=== PATIENT | female | born 1960 | race African-American/Black ===

== ENCOUNTER 2016-08-05 12:07 | Emergency (ER) | payer OTHER ==
[~2016-08-05] VITALS: Ht 167.6 cm; Wt 99.8 kg
[~2016-08-05 12:07] MED LIST: ALLEGRA ALLERGY60 MG PO; ATENOLOL 25 MG25 M1 PO; AUGMENTIN 875875 MG PO; CARAFATE 11 GM/10 M1 PO; FLONASE 0.05%50 MCG NASAL; GLUCOPHAGE XR500 MG PO; HYDROCHLOROTHIA25 M2 PO; HYDROXYZINE HCL25 M2 PO; IBUPROFEN 600600 M1 PO; ONDANSETRON HCL4 M2 PO; PATADAY2.5 ML OP; PEPCID20 MG PO; PREDNISONE 20 M20 MG PO; PRINIVIL20 MG PO; PROTONIX 20 MG20 M1 PO; SIMVASTATIN40 MG PO; SINUS RELIEF14.7 M1 NS; TRAMADOL 50 MG50 MG PO; ZANTAC 150MG T150 MG PO
[2016-08-05 12:29] LABS: ABSOLUTE NEUTROPHILS 6.2 thou/uL (1.4-8.2); BASOPHILS 0.4 % (0.0-2.0); EOSINOPHILS 1.3 % (0.0-3.0); HEMATOCRIT 40.1 % (37.0-47.0); HEMOGLOBIN 13.4 gm/dL (12.0-15.0); LYMPHOCYTES 15.7 % (24.0-44.0); MCH 28.6 pg (26.0-34.0); MCHC 33.4 % (28.0-37.0); MCV 85.8 fL (80.0-100.0); MONOCYTES 5.7 % (1.0-8.0); PLATELET COUNT 355 thou/uL (150-400); POLYS 76.9 % (36.0-66.0); RBC 4.67 mil/uL (4.20-5.00); RDW 13.8 % (10.5-14.5); WBC 8.1 thou/uL (4.0-11.0)
[2016-08-05 12:31] LABS: MANUAL DIFF NO
[2016-08-05 12:44] LABS: CALCIUM 8.7 mg/dL (8.5-10.1); CREATININE 0.8 mg/dL (0.6-1.3); POTASSIUM 3.2 mmol/L (3.5-5.1)
[2016-08-05 12:48] LABS: ALBUMIN 3.8 g/dL (3.4-5.0); DIRECT BILIRUBIN 0.2 mg/dL (<0.1-0.3); TOTAL BILIRUBIN 0.4 mg/dL (<0.1-1.0); TOTAL PROTEIN 7.8 g/dL (6.4-8.2)
[2016-08-05 14:04] LABS: URINE BILIRUBIN NEGATIVE (Negative); URINE BLOOD NEGATIVE (Negative); URINE COLOR YELLOW; URINE GLUCOSE-RANDOM* NEGATIVE (Negative); URINE KETONES 1+ (Negative); URINE NITRITE NEGATIVE (Negative); URINE PROTEIN (DIPSTICK) NEGATIVE (Negative); URINE SPECIFIC GRAVITY <= 1.005 (1.003-1.035); URINE UROBILINOGEN 0.2 E.U./dl (0.2-1.0)
[2016-08-05] MEDS ORDERED: ONDANSETRON HCL4 M2 PO (14:48)
[2016-08-05 15:10] VITALS: BP 128/88
[2016-09-07] MEDS ORDERED: CETIRIZINE HCL10 MG PO (08:40)
[2016-09-07] MEDS ORDERED: FLONASE 0.05%50 MCG NASAL (08:41)
== END 2016-08-05 15:10 | disposition home or self-care (01) ==
LOC: ER 12:07
PROVIDERS: Nurse Practitioner
DX: J06.9 Acute upper respiratory infection, unspecified (principal); R10.13 Epigastric pain; I10 Essential (primary) hypertension; G56.03 Carpal tunnel syndrome, bilateral upper limbs; Z88.8 Allergy status to other drugs, medicaments and biological substances

== ENCOUNTER 2016-08-21 18:16 | Emergency (ER) | payer OTHER ==
[~2016-08-21] VITALS: Ht 167.6 cm; Wt 94.3 kg
[2016-08-21 18:20] VITALS: BP 158/98
[2016-08-21] MEDS ORDERED: PREDNISONE 20 M20 MG PO (18:52)
[2016-08-21] MEDS ORDERED: AFRIN15 ML NS (18:52)
[2016-09-07] MEDS ORDERED: CETIRIZINE HCL10 MG PO (08:40)
[2016-09-07] MEDS ORDERED: FLONASE 0.05%50 MCG NASAL (08:41)
== END 2016-08-21 19:24 | disposition home or self-care (01) ==
LOC: ER 18:16
DX: H10.10 Acute atopic conjunctivitis, unspecified eye (principal); I10 Essential (primary) hypertension; G56.03 Carpal tunnel syndrome, bilateral upper limbs; Z88.6 Allergy status to analgesic agent

== ENCOUNTER 2017-02-19 21:08 | Emergency (ER) | payer OTHER ==
[~2017-02-19] VITALS: Ht 167.6 cm; Wt 91.2 kg
[~2017-02-19 21:08] MED LIST changes: +AFRIN15 ML NS; +CETIRIZINE HCL10 MG PO
[2017-02-19] MEDS ORDERED: PREDNISONE 20 M20 MG PO (21:27)
[2017-02-19 21:40] VITALS: BP 150/94
== END 2017-02-19 21:41 | disposition home or self-care (01) ==
LOC: ER 21:08
DX: H10.13 Acute atopic conjunctivitis, bilateral (principal); I10 Essential (primary) hypertension; Z88.4 Allergy status to anesthetic agent

== ENCOUNTER 2017-02-23 22:24 | Emergency (ER) | payer OTHER ==
[~2017-02-23] VITALS: Ht 167.6 cm; Wt 91.6 kg
--- NOTE | ~2017-02-23 | EKG ---
[address] [address] ELECTROCARDIOGRAM REPORT Name: YAMILLUCYJAMSHID Room #: DEP [facility]#: [id number] Admission: 02/23/17 Attend Phys: Discharge: 02/24/17 Date of : 64 Report #: [id number] THIS REPORT FOR: //name// [facility] ED Test Date: 2017-02-23 Test Time: 22:28:10 Pat Name: JAMSHID TOWNSEND Department: Room: Gender: F Heel Former: judi : 1960 Requested By: Myrna Martin Order Number: [id number] MD: Morgan Yeager Measurements Intervals [place] Rate: 75 P: 62 NC: 164 QRS: 31 QRSD: 89 T: 9 QT: 417 QTc: 466 Interpretive Statements Sinus rhythm No significant abnormality Compared to ECG 01/30/2016 18:33:10 No significant changes Electronically Signed On 02-26-2017 8:34:00 CDT by Morgan Yeager [email or web address] <ELECTRONICALLY SIGNED> By: Morgan Yeager MD, [facility] 02/26/17 0834 2228 2228 Morgan Yeager MD, FACC /EPI
[2017-02-23 22:58] LABS: ABSOLUTE NEUTROPHILS 5.2 thou/uL (1.4-8.2); BASOPHILS 0.8 % (0.0-2.0); EOSINOPHILS 2.7 % (0.0-3.0); HEMATOCRIT 37.7 % (37.0-47.0); HEMOGLOBIN 12.4 gm/dL (12.0-15.0); LYMPHOCYTES 37.5 % (24.0-44.0); MCH 28.2 pg (26.0-34.0); MCHC 32.9 g/dL (28.0-37.0); MCV 85.9 fL (80.0-100.0); MONOCYTES 5.1 % (1.0-8.0); PLATELET COUNT 342 thou/uL (150-400); POLYS 53.9 % (36.0-66.0); RBC 4.39 mil/uL (4.20-5.00); RDW 14.1 % (10.5-14.5); WBC 9.7 thou/uL (4.0-11.0)
[2017-02-23 22:59] LABS: MANUAL DIFF NO
[2017-02-23 23:23] LABS: ANION GAP 9 mmol/L (7-16); BUN 15 mg/dL (7-18); CHLORIDE 101 mmol/L (98-107); CO2 30 mmol/L (21-32); CREATININE 0.9 mg/dL (0.6-1.0); GLUCOSE 127 mg/dL (74-106); SODIUM 140 mmol/L (136-145); TROPONIN-I < 0.04 ng/mL (<0.04-0.07)
[2017-02-23 23:24] LABS: POTASSIUM 2.9 mmol/L (3.5-5.1)
[2017-02-24] MEDS ORDERED: PRILOSEC 20 MG20 MG PO (02:01)
[2017-02-24 02:20] VITALS: BP 134/78
== END 2017-02-24 02:22 | disposition home or self-care (01) ==
LOC: ER 22:24
PROVIDERS: Emergency Medicine
DX: E87.6 Hypokalemia (principal); R07.89 Other chest pain; I10 Essential (primary) hypertension; Z88.4 Allergy status to anesthetic agent

== ENCOUNTER 2017-03-18 08:18 | Emergency (ER) | payer OTHER ==
[~2017-03-18] VITALS: Ht 167.6 cm; Wt 90.3 kg
[~2017-03-18 08:18] MED LIST changes: +PRILOSEC 20 MG20 MG PO
[2017-03-18 08:20] VITALS: BP 151/105
[2017-03-18] MEDS ORDERED: AUGMENTIN 875-1 EACH PO (08:36)
[2017-03-18] MEDS ORDERED: PREDNISONE 20 M20 MG PO (08:36)
== END 2017-03-18 08:52 | disposition home or self-care (01) ==
LOC: ER 08:18
DX: L03.213 Periorbital cellulitis (principal); S00.262A Insect bite (nonvenomous) of left eyelid and periocular area, initial encounter; W57.XXXA Bitten or stung by nonvenomous insect and other nonvenomous arthropods, initial encounter; Y93.89 Activity, other specified; Y92.89 Other specified places as the place of occurrence of the external cause; Y99.8 Other external cause status

== ENCOUNTER 2017-07-29 16:26 | Emergency (ER) | payer OTHER ==
[~2017-07-29] VITALS: Ht 167.6 cm; Wt 94.3 kg
[~2017-07-29 16:26] MED LIST changes: +AUGMENTIN 875-1 EACH PO; +PHENERGAN 25 MG25 M1 PO
[2017-07-29 16:54] LABS: URINE BILIRUBIN NEGATIVE (Negative); URINE BLOOD NEGATIVE (Negative); URINE CLARITY CLEAR; URINE COLOR YELLOW; URINE GLUCOSE-RANDOM* NEGATIVE (Negative); URINE KETONES NEGATIVE (Negative); URINE LEUKOCYTES-REFLEX NEGATIVE (Negative); URINE NITRITE-REFLEX NEGATIVE (Negative); URINE PROTEIN (DIPSTICK) NEGATIVE (Negative); URINE SPECIFIC GRAVITY >= 1.030 (1.005-1.035); URINE UROBILINOGEN 0.2 E.U./dl (0.2-1.0)
[2017-07-29] MEDS ORDERED: PYRIDIUM200 MG PO (16:57)
[2017-07-29 17:38] VITALS: BP 152/88
[2018-04-24] MEDS ORDERED: PEPCID20 MG PO (05:34)
[2018-04-24] MEDS ORDERED: PREDNISONE 20 M20 MG PO (05:34)
[2018-04-24] MEDS ORDERED: KEFLEX500 M1 PO (05:34)
[2018-04-24] MEDS ORDERED: ZOCOR20 MG PO (21:33)
[2018-04-24] MEDS ORDERED: OMEPRAZOLE 20 M20 M1 PO (21:33)
[2018-04-26] MEDS ORDERED: PREDNISONE 20 M20 MG PO (08:38)
== END 2017-07-29 17:39 | disposition home or self-care (01) ==
LOC: ER 16:26
PROVIDERS: Emergency Medicine
DX: R30.0 Dysuria (principal); I10 Essential (primary) hypertension; Z98.890 Other specified postprocedural states

== ENCOUNTER 2017-08-05 02:22 | Emergency (ER) | payer OTHER ==
[~2017-08-05] VITALS: Ht 167.6 cm; Wt 94.3 kg
[~2017-08-05 02:22] MED LIST changes: +PYRIDIUM200 MG PO
[2017-08-05] MEDS ORDERED: DOXYCYCLINE 10100 MG PO (02:37)
[2017-08-05] MEDS ORDERED: FLAGYL500 MG PO (02:37)
[2017-08-05 03:33] LABS: URINE BILIRUBIN NEGATIVE (Negative); URINE BLOOD NEGATIVE (Negative); URINE CLARITY CLEAR; URINE COLOR YELLOW; URINE GLUCOSE-RANDOM* NEGATIVE (Negative); URINE KETONES TRACE (Negative); URINE LEUKOCYTES-REFLEX NEGATIVE (Negative); URINE PROTEIN (DIPSTICK) NEGATIVE (Negative); URINE SPECIFIC GRAVITY >= 1.030 (1.005-1.035); URINE UROBILINOGEN 0.2 E.U./dl (0.2-1.0)
[2017-08-05 03:37] LABS: URINE NITRITE-REFLEX POSITIVE (Negative)
[2017-08-05 03:42] LABS: BACTERIA-REFLEX 1-9 Few /HPF (None Seen); CASTS None Seen /LPF (None Seen); CRYSTALS None Seen /LPF (None Seen); MUCUS 0-3 Light strn/LPF (None Seen); SQUAMOUS 0-3 Few /LPF (0-3); URINE RBC None Seen /HPF (0-2); URINE WBC-REFLEX None Seen /HPF (0-5)
[2017-08-05] MEDS ORDERED: KEFLEX500 M1 PO (04:08)
[2017-08-05] MEDS ORDERED: PYRIDIUM200 MG PO (04:08)
[2017-08-05 04:44] VITALS: BP 144/95
[2018-04-24] MEDS ORDERED: PREDNISONE 20 M20 MG PO (05:34)
[2018-04-24] MEDS ORDERED: PEPCID20 MG PO (05:34)
[2018-04-24] MEDS ORDERED: KEFLEX500 M1 PO (05:34)
[2018-04-24] MEDS ORDERED: ZOCOR20 MG PO (21:33)
[2018-04-24] MEDS ORDERED: OMEPRAZOLE 20 M20 M1 PO (21:33)
[2018-04-26] MEDS ORDERED: PREDNISONE 20 M20 MG PO (08:38)
== END 2017-08-05 04:46 | disposition home or self-care (01) ==
LOC: ER 02:22
PROVIDERS: Emergency Medicine
DX: N39.0 Urinary tract infection, site not specified (principal); I10 Essential (primary) hypertension; Z98.890 Other specified postprocedural states; Z88.4 Allergy status to anesthetic agent

== ENCOUNTER 2018-01-12 20:39 | Emergency (ER) | payer OTHER ==
[~2018-01-12] VITALS: Ht 167.6 cm; Wt 92.5 kg
--- NOTE | ~2018-01-12 | EKG ---
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 : 1960 Requested By: Myrna Martin Order Number: [id number] MD: Nestor Montenegro Measurements Intervals [place] Rate: 83 P: 64 [place]: 145 QRS: 43 QRSD: 90 T: 24 QT: 407 QTc: 479 Interpretive Statements Sinus rhythm Atrial premature complex Probable left atrial enlargement Compared to ECG 02/23/2017 22:28:10 Atrial premature complex(es) now present Electronically Signed On 01-12-2018 21:39:54 CDT by Nestor Montenegro [email or web address] <ELECTRONICALLY SIGNED> By: Nestor Montenegro MD 01/12/18 2139 41 41 Nestor Montenegro MD /JOHN
[~2018-01-12 20:39] MED LIST changes: +DOXYCYCLINE 10100 MG PO; +FLAGYL500 MG PO; +KEFLEX500 M1 PO
[2018-01-12 20:41] VITALS: BP 133/92
[2018-01-12] MEDS ORDERED: CLARITIN-D 12 H1 TA2 PO (21:09)
[2018-01-12] MEDS ORDERED: FLONASE 0.05%50 MCG NASAL (21:09)
== END 2018-01-12 21:52 | disposition home or self-care (01) ==
LOC: ER 20:39
DX: J02.8 Acute pharyngitis due to other specified organisms (principal); B97.89 Other viral agents as the cause of diseases classified elsewhere; R00.2 Palpitations; I10 Essential (primary) hypertension

== ENCOUNTER 2018-03-04 20:09 | Emergency (ER) | payer OTHER ==
[~2018-03-04] VITALS: Ht 167.6 cm; Wt 91.6 kg
[~2018-03-04 20:09] MED LIST changes: +CLARITIN-D 12 H1 TA2 PO
[2018-03-04] MEDS ORDERED: PREDNISONE 20 M20 M1 PO (20:56)
[2018-03-04] MEDS ORDERED: MOBIC7.5 MG PO (20:56)
[2018-03-04] MEDS ORDERED: ALLEGRA-D 12 H1 EAC1 PO (20:58)
[2018-03-04 21:21] VITALS: BP 136/72
== END 2018-03-04 21:22 | disposition home or self-care (01) ==
LOC: ER 20:09
DX: J02.9 Acute pharyngitis, unspecified (principal); H69.92 Unspecified Eustachian tube disorder, left ear; I10 Essential (primary) hypertension; Z88.8 Allergy status to other drugs, medicaments and biological substances

== ENCOUNTER 2018-04-21 20:55 | Emergency (ER) | payer OTHER ==
[~2018-04-21] VITALS: Ht 167.6 cm; Wt 91.6 kg
[~2018-04-21 20:55] MED LIST changes: +ALLEGRA-D 12 H1 EAC1 PO; +MOBIC7.5 MG PO; +PREDNISONE 20 M20 M1 PO
[2018-04-21] MEDS ORDERED: TRIAMCINOLONE A80 G2 TOP (21:27)
[2018-04-21 21:40] VITALS: BP 130/86
[2018-04-24] MEDS ORDERED: PEPCID20 MG PO (05:34)
[2018-04-24] MEDS ORDERED: KEFLEX500 M1 PO (05:34)
[2018-04-24] MEDS ORDERED: PREDNISONE 20 M20 MG PO (05:34)
[2018-04-24] MEDS ORDERED: OMEPRAZOLE 20 M20 M1 PO (21:33)
[2018-04-24] MEDS ORDERED: ZOCOR20 MG PO (21:33)
[2018-04-26] MEDS ORDERED: PREDNISONE 20 M20 MG PO (08:38)
== END 2018-04-21 21:42 | disposition home or self-care (01) ==
LOC: ER 20:55
DX: L25.9 Unspecified contact dermatitis, unspecified cause (principal); I10 Essential (primary) hypertension; Z88.4 Allergy status to anesthetic agent

== ENCOUNTER 2018-05-19 23:36 | Emergency (ER) | payer OTHER ==
[~2018-05-19] VITALS: Ht 167.6 cm; Wt 90.3 kg
[~2018-05-19 23:36] MED LIST changes: +OMEPRAZOLE 20 M20 M1 PO; +TRIAMCINOLONE A80 G2 TOP; +ZOCOR20 MG PO
[2018-05-19 23:58] LABS: URINE BILIRUBIN NEGATIVE (Negative); URINE BLOOD NEGATIVE (Negative); URINE CLARITY CLEAR; URINE COLOR YELLOW; URINE GLUCOSE-RANDOM* NEGATIVE (Negative); URINE KETONES NEGATIVE (Negative); URINE LEUKOCYTES-REFLEX NEGATIVE (Negative); URINE NITRITE-REFLEX NEGATIVE (Negative); URINE PROTEIN (DIPSTICK) NEGATIVE (Negative); URINE SPECIFIC GRAVITY >= 1.030 (1.005-1.035); URINE UROBILINOGEN 0.2 E.U./dl (0.2-1.0)
[2018-05-20 00:13] LABS: ABSOLUTE NEUTROPHILS 3.9 thou/uL (1.4-8.2); BASOPHILS 0.9 % (0.0-2.0); EOSINOPHILS 4.7 % (0.0-3.0); HEMATOCRIT 36.6 % (37.0-47.0); HEMOGLOBIN 12.4 gm/dL (12.0-15.0); LYMPHOCYTES 38.4 % (24.0-44.0); MCH 28.7 pg (26.0-34.0); MCHC 33.9 g/dL (28.0-37.0); MCV 84.6 fL (80.0-100.0); MONOCYTES 5.5 % (1.0-8.0); PLATELET COUNT 313 thou/uL (150-400); POLYS 50.5 % (36.0-66.0); RBC 4.33 mil/uL (4.20-5.00); RDW 14.4 % (10.5-14.5); WBC 7.7 thou/uL (4.0-11.0)
[2018-05-20 00:21] LABS: CALCIUM 9.1 mg/dL (8.5-10.1); CREATININE 0.8 mg/dL (0.6-1.0); POTASSIUM 3.4 mmol/L (3.5-5.1)
[2018-05-20 00:27] LABS: ALBUMIN 3.3 g/dL (3.4-5.0); TOTAL BILIRUBIN 0.2 mg/dL (<0.1-1.0); TOTAL PROTEIN 7.3 g/dL (6.4-8.2)
[2018-05-20] MEDS ORDERED: MIRALAX17 GM PO (01:21)
[2018-05-20] MEDS ORDERED: BENTYL 10 MG CA10 M1 PO (01:38)
== END 2018-05-20 01:58 | disposition home or self-care (01) ==
LOC: ER 23:36
PROVIDERS: Emergency Medicine
DX: K59.00 Constipation, unspecified (principal); E78.5 Hyperlipidemia, unspecified; G56.03 Carpal tunnel syndrome, bilateral upper limbs; K21.9 Gastro-esophageal reflux disease without esophagitis; Z90.710 Acquired absence of both cervix and uterus; Z87.19 Personal history of other diseases of the digestive system; Z88.8 Allergy status to other drugs, medicaments and biological substances

== ENCOUNTER 2018-11-02 17:02 | Emergency (ER) | payer OTHER ==
[~2018-11-02] VITALS: Ht 167.6 cm; Wt 94.8 kg
[~2018-11-02 17:02] MED LIST changes: +BENTYL 10 MG CA10 M1 PO; +MIRALAX17 GM PO
[2018-11-02] MEDS ORDERED: NORCO 5-325 TA1 EACH PO (18:39)
[2018-11-02 19:15] VITALS: BP 108/67
[2018-11-03] MEDS ORDERED: NORCO 5-325 TA1 EACH PO (17:30)
[2018-11-03] MEDS ORDERED: CLEOCIN HCL150 MG PO (17:30)
== END 2018-11-02 19:15 | disposition home or self-care (01) ==
LOC: ER 17:02
DX: J02.0 Streptococcal pharyngitis (principal); E78.5 Hyperlipidemia, unspecified; K21.9 Gastro-esophageal reflux disease without esophagitis; Z90.710 Acquired absence of both cervix and uterus; Z88.8 Allergy status to other drugs, medicaments and biological substances

== ENCOUNTER 2018-11-03 13:41 | Emergency (ER) | payer OTHER ==
[~2018-11-03] VITALS: Ht 167.6 cm; Wt 94.8 kg
[~2018-11-03 13:41] MED LIST changes: +NORCO 5-325 TA1 EACH PO
[2018-11-03 16:34] LABS: ABSOLUTE NEUTROPHILS 7.9 thou/uL (1.4-8.2); BASOPHILS 0.6 % (0.0-2.0); EOSINOPHILS 0.3 % (0.0-3.0); HEMATOCRIT 35.9 % (37.0-47.0); HEMOGLOBIN 11.8 gm/dL (12.0-15.0); LYMPHOCYTES 22.4 % (24.0-44.0); MCH 27.3 pg (26.0-34.0); MCHC 32.9 g/dL (28.0-37.0); MCV 83.1 fL (80.0-100.0); MONOCYTES 7.8 % (1.0-8.0); PLATELET COUNT 310 thou/uL (150-400); POLYS 68.9 % (36.0-66.0); RBC 4.32 mil/uL (4.20-5.00); RDW 13.8 % (10.5-14.5); WBC 11.4 thou/uL (4.0-11.0)
[2018-11-03 16:39] LABS: CALCIUM 9.4 mg/dL (8.5-10.1); CREATININE 0.9 mg/dL (0.6-1.0); POTASSIUM 3.2 mmol/L (3.5-5.1)
[2018-11-03] MEDS ORDERED: NORCO 5-325 TA1 EACH PO (17:30)
[2018-11-03] MEDS ORDERED: CLEOCIN HCL150 MG PO (17:30)
[2018-11-03 17:49] VITALS: BP 138/78
== END 2018-11-03 17:54 | disposition home or self-care (01) ==
LOC: ER 13:41
PROVIDERS: Nurse Practitioner Family
DX: J02.0 Streptococcal pharyngitis (principal); R59.1 Generalized enlarged lymph nodes; K21.9 Gastro-esophageal reflux disease without esophagitis; Z88.8 Allergy status to other drugs, medicaments and biological substances; Z90.710 Acquired absence of both cervix and uterus

== ENCOUNTER 2018-11-05 03:05 | Emergency (ER) | payer OTHER ==
[~2018-11-05] VITALS: Ht 167.6 cm; Wt 94.8 kg
[~2018-11-05 03:05] MED LIST changes: +CLEOCIN HCL150 MG PO
[2018-11-05 04:11] VITALS: BP 137/94
== END 2018-11-05 04:13 | disposition home or self-care (01) ==
LOC: ER 03:05
DX: J02.9 Acute pharyngitis, unspecified (principal); E78.5 Hyperlipidemia, unspecified; K21.9 Gastro-esophageal reflux disease without esophagitis; Z88.1 Allergy status to other antibiotic agents; Z88.4 Allergy status to anesthetic agent; Z90.710 Acquired absence of both cervix and uterus

== ENCOUNTER 2018-12-16 16:08 | Emergency (ER) | payer OTHER ==
[~2018-12-16] VITALS: Ht 165.1 cm; Wt 94.8 kg
[2018-12-16] MEDS ORDERED: TESSALON PERLE100 MG PO (18:22)
[2018-12-16] MEDS ORDERED: GUAIFEN-CODEINE10 ML PO (18:22)
[2018-12-16 18:44] VITALS: BP 143/74
== END 2018-12-16 18:45 | disposition home or self-care (01) ==
LOC: ER 16:08
DX: J06.9 Acute upper respiratory infection, unspecified (principal); E78.5 Hyperlipidemia, unspecified; K21.9 Gastro-esophageal reflux disease without esophagitis; Z90.710 Acquired absence of both cervix and uterus; Z88.1 Allergy status to other antibiotic agents; Z88.8 Allergy status to other drugs, medicaments and biological substances

== ENCOUNTER 2019-03-26 12:59 | Emergency (ER) | payer OTHER ==
[~2019-03-26] VITALS: Ht 172.7 cm; Wt 77.1 kg
[~2019-03-26 12:59] MED LIST changes: +GUAIFEN-CODEINE10 ML PO; +TESSALON PERLE100 MG PO
[2019-03-26 13:30] LABS: URINE BILIRUBIN NEGATIVE (Negative); URINE BLOOD NEGATIVE (Negative); URINE CLARITY CLEAR; URINE COLOR YELLOW; URINE GLUCOSE-RANDOM* NEGATIVE (Negative); URINE KETONES NEGATIVE (Negative); URINE LEUKOCYTES-REFLEX NEGATIVE (Negative); URINE NITRITE-REFLEX NEGATIVE (Negative); URINE PROTEIN (DIPSTICK) NEGATIVE (Negative); URINE SPECIFIC GRAVITY 1.015 (1.005-1.035); URINE UROBILINOGEN 0.2 E.U./dl (0.2-1.0)
[2019-03-26 13:52] LABS: MCH 28.1 pg (26.0-34.0); MCHC 33.6 g/dL (28.0-37.0)
[2019-03-26 13:58] LABS: ABSOLUTE NEUTROPHILS 3.7 thou/uL (1.4-8.2); CALCIUM 9.7 mg/dL (8.5-10.1); CREATININE 0.9 mg/dL (0.6-1.0); HEMATOCRIT 38.2 % (37.0-47.0); HEMOGLOBIN 12.8 gm/dL (12.0-15.0); LYMPHOCYTES 38.6 % (24.0-44.0); MCV 83.8 fL (80.0-100.0); MONOCYTES 5.8 % (1.0-8.0); PLATELET COUNT 356 thou/uL (150-400); POLYS 52.6 % (36.0-66.0); POTASSIUM 3.6 mmol/L (3.5-5.1); RBC 4.56 mil/uL (4.20-5.00); RDW 13.6 % (10.5-14.5)
[2019-03-26 14:05] LABS: ALBUMIN 3.8 g/dL (3.4-5.0); TOTAL BILIRUBIN 0.4 mg/dL (<0.1-1.0); TOTAL PROTEIN 7.8 g/dL (6.4-8.2)
[2019-03-26 14:21] VITALS: BP 121/85
[2019-03-26] MEDS ORDERED: MOBIC15 MG PO (14:39)
== END 2019-03-26 14:53 | disposition home or self-care (01) ==
LOC: ER 12:59
PROVIDERS: Nurse Practitioner Family
DX: R10.9 Unspecified abdominal pain (principal); E78.5 Hyperlipidemia, unspecified; K21.9 Gastro-esophageal reflux disease without esophagitis; Z88.1 Allergy status to other antibiotic agents; Z88.4 Allergy status to anesthetic agent; Z90.710 Acquired absence of both cervix and uterus

== ENCOUNTER 2019-04-29 10:21 | Emergency (ER) | payer OTHER ==
[~2019-04-29] VITALS: Ht 167.6 cm; Wt 90.7 kg
[~2019-04-29 10:21] MED LIST changes: +MOBIC15 MG PO
[2019-04-29 11:12] LABS: EOSINOPHILS 1.8 % (0.0-3.0); HEMATOCRIT 42.2 % (37.0-47.0); MCH 28.7 pg (26.0-34.0); MCHC 33.3 g/dL (28.0-37.0); MCV 86.1 fL (80.0-100.0); MONOCYTES 4.4 % (1.0-8.0); PLATELET COUNT 410 thou/uL (150-400); POLYS 67.8 % (36.0-66.0); RDW 13.7 % (10.5-14.5); WBC 7.4 thou/uL (4.0-11.0)
[2019-04-29 11:32] LABS: URINE BILIRUBIN NEGATIVE (Negative); URINE BLOOD NEGATIVE (Negative); URINE CLARITY CLEAR; URINE COLOR YELLOW; URINE GLUCOSE-RANDOM* NEGATIVE (Negative); URINE KETONES NEGATIVE (Negative); URINE LEUKOCYTES-REFLEX NEGATIVE (Negative); URINE NITRITE-REFLEX NEGATIVE (Negative); URINE PROTEIN (DIPSTICK) NEGATIVE (Negative); URINE SPECIFIC GRAVITY 1.025 (1.005-1.035); URINE UROBILINOGEN 0.2 E.U./dl (0.2-1.0)
[2019-04-29 11:40] LABS: CALCIUM 9.2 mg/dL (8.5-10.1); CREATININE 0.9 mg/dL (0.6-1.0); POTASSIUM 3.4 mmol/L (3.5-5.1)
[2019-04-29 11:47] LABS: ALBUMIN 3.8 g/dL (3.4-5.0); TOTAL BILIRUBIN 0.3 mg/dL (<0.1-1.0); TOTAL PROTEIN 7.9 g/dL (6.4-8.2)
[2019-04-29 12:50] VITALS: BP 143/84
--- NOTE | 2019-05-01 12:43 | EKG ---
[address] [address] ELECTROCARDIOGRAM REPORT Name: JAMSHID TOWNSEND Room #: DEP [facility]#: [id number] Admission: 04/29/19 Attend Phys: Discharge: 04/29/19 Date of : 64 Report #: [id number] THIS REPORT FOR: //name// [facility] ED Test Date: 2019-04-29 Test Time: 11:13:45 Pat Name: JAMSHID TOWNSEND Department: Room: Gender: F Director Cpg: : 1960 Requested By: Raji Monteiro Order Number: [id number] MD: Nestor Montenegro Measurements Intervals [place] Rate: 75 P: 55 [place]: 161 QRS: 42 QRSD: 105 T: 24 QT: 432 QTc: 483 Interpretive Statements Sinus rhythm Probable left atrial enlargement Borderline prolonged QT interval Compared to ECG 01/12/2018 20:42:04 Atrial premature complex(es) no longer present Electronically Signed On 05-01-2019 12:42:59 CDT by Nestor Montenegro [email or web address] <ELECTRONICALLY SIGNED> By: Nestor Montenegro MD 05/01/19 1242 1113 111 Nestor Montenegro MD /JOHN
== END 2019-04-29 12:50 | disposition home or self-care (01) ==
LOC: ER 10:21
PROVIDERS: Emergency Medicine
DX: R10.13 Epigastric pain (principal); R11.2 Nausea with vomiting, unspecified; E78.5 Hyperlipidemia, unspecified; K21.9 Gastro-esophageal reflux disease without esophagitis; E66.9 Obesity, unspecified; Z68.32 Body mass index [BMI] 32.0-32.9, adult; Z90.711 Acquired absence of uterus with remaining cervical stump; Z88.1 Allergy status to other antibiotic agents; Z91.048 Other nonmedicinal substance allergy status

== ENCOUNTER 2019-05-01 20:19 | Emergency (ER) | payer OTHER ==
[~2019-05-01] VITALS: Ht 167.6 cm; Wt 90.7 kg
[2019-05-01 20:35] LABS: URINE BILIRUBIN NEGATIVE (Negative); URINE BLOOD NEGATIVE (Negative); URINE CLARITY CLEAR; URINE COLOR YELLOW; URINE GLUCOSE-RANDOM* NEGATIVE (Negative); URINE KETONES NEGATIVE (Negative); URINE LEUKOCYTES NEGATIVE (Negative); URINE NITRITE NEGATIVE (Negative); URINE PROTEIN (DIPSTICK) NEGATIVE (Negative)
[2019-05-01 20:54] LABS: ABSOLUTE NEUTROPHILS 4.7 thou/uL (1.4-8.2); BASOPHILS 0.4 % (0.0-2.0); EOSINOPHILS 1.8 % (0.0-3.0); HEMATOCRIT 37.2 % (37.0-47.0); HEMOGLOBIN 12.3 gm/dL (12.0-15.0); LYMPHOCYTES 17.7 % (24.0-44.0); MCV 84.9 fL (80.0-100.0); MONOCYTES 6.6 % (1.0-8.0); POLYS 73.5 % (36.0-66.0); RBC 4.38 mil/uL (4.20-5.00); WBC 6.4 thou/uL (4.0-11.0)
[2019-05-01 20:55] LABS: PLATELET COUNT 334 thou/uL (150-400)
[2019-05-01 21:02] LABS: ANION GAP 11 mmol/L (7-16); BUN 16 mg/dL (7-18); CALCIUM 9.4 mg/dL (8.5-10.1); CHLORIDE 102 mmol/L (98-107); CO2 27 mmol/L (21-32); CREATININE 0.8 mg/dL (0.6-1.0); GLUCOSE 132 mg/dL (74-106); POTASSIUM 3.5 mmol/L (3.5-5.1); SODIUM 140 mmol/L (136-145)
[2019-05-01 21:12] LABS: ALBUMIN 3.5 g/dL (3.4-5.0); LIPASE 104 U/L (73-393); SGOT 20 U/L (15-37); SGPT 23 U/L (30-65); TOTAL BILIRUBIN 0.2 mg/dL (<0.1-1.0); TOTAL PROTEIN 7.1 g/dL (6.4-8.2); TROPONIN-I <0.06 ng/mL (<0.06)
[2019-05-01 21:45] VITALS: BP 126/83
[2019-05-01] MEDS ORDERED: ZOFRAN ODT4 MG PO (21:48)
[2019-05-01] MEDS ORDERED: BENTYL 10 MG CA10 M1 PO (21:48)
[2019-05-01] MEDS ORDERED: BENTYL 20 MG TA20 M1 PO (21:51)
[2019-05-01] MEDS ORDERED: ONDANSETRON HCL4 M2 PO (21:51)
--- NOTE | 2019-05-04 13:14 | EKG ---
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
== END 2019-05-01 22:20 | disposition home or self-care (01) ==
LOC: ER 20:19
PROVIDERS: Physician Assistant
DX: K44.9 Diaphragmatic hernia without obstruction or gangrene (principal); R10.13 Epigastric pain; R11.2 Nausea with vomiting, unspecified; E78.5 Hyperlipidemia, unspecified; K21.9 Gastro-esophageal reflux disease without esophagitis; Z90.711 Acquired absence of uterus with remaining cervical stump; Z88.1 Allergy status to other antibiotic agents; Z88.4 Allergy status to anesthetic agent

== ENCOUNTER 2019-05-19 06:51 | Emergency (ER) | payer OTHER ==
[~2019-05-19] VITALS: Ht 167.6 cm; Wt 90.7 kg
[~2019-05-19 06:51] MED LIST changes: +BENTYL 20 MG TA20 M1 PO; +ZOFRAN ODT4 MG PO
[2019-05-19 07:17] LABS: URINE BILIRUBIN NEGATIVE (Negative); URINE BLOOD NEGATIVE (Negative); URINE CLARITY CLEAR; URINE COLOR YELLOW; URINE GLUCOSE-RANDOM* NEGATIVE (Negative); URINE KETONES NEGATIVE (Negative); URINE LEUKOCYTES-REFLEX NEGATIVE (Negative); URINE NITRITE-REFLEX NEGATIVE (Negative); URINE PROTEIN (DIPSTICK) NEGATIVE (Negative); URINE SPECIFIC GRAVITY >= 1.030 (1.005-1.035); URINE UROBILINOGEN 0.2 E.U./dl (0.2-1.0)
[2019-05-19 07:50] LABS: ABSOLUTE NEUTROPHILS 4.6 thou/uL (1.4-8.2); HEMATOCRIT 37.5 % (37.0-47.0); HEMOGLOBIN 12.4 gm/dL (12.0-15.0); LYMPHOCYTES 21.5 % (24.0-44.0); MCH 27.9 pg (26.0-34.0); MCV 84.7 fL (80.0-100.0); MONOCYTES 5.7 % (1.0-8.0); PLATELET COUNT 349 thou/uL (150-400); POLYS 69.8 % (36.0-66.0); RBC 4.43 mil/uL (4.20-5.00); RDW 13.5 % (10.5-14.5); WBC 6.6 thou/uL (4.0-11.0)
[2019-05-19 07:56] LABS: ANION GAP 8 mmol/L (7-16); BUN 15 mg/dL (7-18); CALCIUM 9.1 mg/dL (8.5-10.1); CHLORIDE 102 mmol/L (98-107); CO2 29 mmol/L (21-32); CREATININE 0.9 mg/dL (0.6-1.0); GLUCOSE 124 mg/dL (74-106); POTASSIUM 3.6 mmol/L (3.5-5.1); SODIUM 139 mmol/L (136-145)
[2019-05-19 08:04] LABS: ALBUMIN 3.6 g/dL (3.4-5.0); LIPASE 88 U/L (73-393); SGOT 17 U/L (15-37); SGPT 20 U/L (30-65); TOTAL BILIRUBIN 0.3 mg/dL (<0.1-1.0); TOTAL PROTEIN 7.1 g/dL (6.4-8.2); TROPONIN-I <0.06 ng/mL (<0.06)
[2019-05-19] MEDS ORDERED: LIDOCAINE VISC100 ML PO (09:14)
[2019-05-19 09:16] VITALS: BP 118/64
--- NOTE | 2019-05-19 17:08 | EKG ---
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 05/19/19 1707 0722 1 Morgan Yeager MD, FACC /EPI
== END 2019-05-19 09:16 | disposition home or self-care (01) ==
LOC: ER 06:51
PROVIDERS: Emergency Medicine
DX: R10.10 Upper abdominal pain, unspecified (principal); R11.2 Nausea with vomiting, unspecified; E78.5 Hyperlipidemia, unspecified; K21.9 Gastro-esophageal reflux disease without esophagitis; Z90.711 Acquired absence of uterus with remaining cervical stump; Z88.1 Allergy status to other antibiotic agents; Z88.4 Allergy status to anesthetic agent

== ENCOUNTER 2019-07-03 09:52 | Emergency (ER) | payer OTHER ==
[~2019-07-03] VITALS: Ht 167.6 cm; Wt 90.7 kg
[~2019-07-03 09:52] MED LIST changes: +LIDOCAINE VISC100 ML PO
[2019-07-03] MEDS ORDERED: PRILOSEC OTC20 MG PO (09:56)
[2019-07-03 10:25] VITALS: BP 132/87
== END 2019-07-03 10:25 | disposition home or self-care (01) ==
LOC: ER 09:52
DX: S00.212A Abrasion of left eyelid and periocular area, initial encounter (principal); E78.5 Hyperlipidemia, unspecified; K21.9 Gastro-esophageal reflux disease without esophagitis; Z90.711 Acquired absence of uterus with remaining cervical stump; Z88.1 Allergy status to other antibiotic agents; Z88.4 Allergy status to anesthetic agent; W22.8XXA Striking against or struck by other objects, initial encounter; Y93.89 Activity, other specified; Y92.098 Other place in other non-institutional residence as the place of occurrence of the external cause; Y99.8 Other external cause status

== ENCOUNTER 2019-07-26 16:55 | Emergency (ER) | payer OTHER ==
[~2019-07-26] VITALS: Ht 167.6 cm; Wt 90.7 kg
[~2019-07-26 16:55] MED LIST changes: +PRILOSEC OTC20 MG PO
[2019-07-26 18:30] VITALS: BP 122/71
[2019-07-26] MEDS ORDERED: NORCO 5-325 TA1 EAC1 PO (18:31)
== END 2019-07-26 18:30 | disposition home or self-care (01) ==
LOC: ER 16:55
DX: M13.831 Other specified arthritis, right wrist (principal); M67.431 Ganglion, right wrist; E78.5 Hyperlipidemia, unspecified; K21.9 Gastro-esophageal reflux disease without esophagitis; Z90.711 Acquired absence of uterus with remaining cervical stump; Z88.1 Allergy status to other antibiotic agents; Z88.8 Allergy status to other drugs, medicaments and biological substances

== ENCOUNTER 2019-08-14 02:11 | Emergency (ER) | payer OTHER ==
[~2019-08-14] VITALS: Ht 165.1 cm; Wt 68.0 kg
[~2019-08-14 02:11] MED LIST changes: +NORCO 5-325 TA1 EAC1 PO
[2019-08-14] MEDS ORDERED: FLONASE 0.05%50 MCG NARES (02:36)
[2019-08-14] MEDS ORDERED: CETIRIZINE HCL10 MG PO (02:37)
[2019-08-14] MEDS ORDERED: METFORMIN HCL1000 MG PO (02:39)
[2019-08-14] MEDS ORDERED: NORFLEX100 MG PO (04:35)
[2019-08-14] MEDS ORDERED: NAPROSYN500 MG PO (04:35)
[2019-08-14 04:40] VITALS: BP 146/80
== END 2019-08-14 04:40 | disposition home or self-care (01) ==
LOC: ER 02:11
DX: M43.6 Torticollis (principal); Z88.6 Allergy status to analgesic agent; K21.9 Gastro-esophageal reflux disease without esophagitis

== ENCOUNTER 2019-09-03 21:10 | Emergency (ER) | payer OTHER ==
[~2019-09-03] VITALS: Ht 167.6 cm; Wt 90.7 kg
[~2019-09-03 21:10] MED LIST changes: +FLONASE 0.05%50 MCG NARES; +METFORMIN HCL1000 MG PO; +NAPROSYN500 MG PO; +NORFLEX100 MG PO
[2019-09-04 00:30] VITALS: BP 146/86
== END 2019-09-04 00:30 | disposition home or self-care (01) ==
LOC: ER 21:10
DX: J32.9 Chronic sinusitis, unspecified (principal); K21.9 Gastro-esophageal reflux disease without esophagitis; Z88.1 Allergy status to other antibiotic agents; Z88.8 Allergy status to other drugs, medicaments and biological substances

== ENCOUNTER 2019-10-01 15:04 | Emergency (ER) | payer OTHER ==
[~2019-10-01] VITALS: Ht 167.6 cm; Wt 93.4 kg
[2019-10-01] MEDS ORDERED: AUGMENTIN 875-1 EACH PO (16:15)
[2019-10-01 16:27] VITALS: BP 134/89
== END 2019-10-01 16:28 | disposition home or self-care (01) ==
LOC: ER 15:04
DX: S01.551A Open bite of lip, initial encounter (principal); K21.9 Gastro-esophageal reflux disease without esophagitis; Z90.710 Acquired absence of both cervix and uterus; Z79.899 Other long term (current) drug therapy; Z88.1 Allergy status to other antibiotic agents; Z88.4 Allergy status to anesthetic agent; W61.01XA Bitten by parrot, initial encounter; Y93.89 Activity, other specified; Y92.89 Other specified places as the place of occurrence of the external cause; Y99.8 Other external cause status

== ENCOUNTER 2020-03-18 03:22 | Emergency (ER) | payer OTHER ==
[~2020-03-18] VITALS: Ht 167.6 cm; Wt 90.7 kg
[2020-03-18] MEDS ORDERED: HYDROCHLOROTHIA25 M2 PO (03:30)
[2020-03-18] MEDS ORDERED: PREDNISONE 20 M20 MG PO (03:53)
[2020-03-18 04:22] VITALS: BP 122/74
== END 2020-03-18 04:22 | disposition home or self-care (01) ==
LOC: ER 03:22
DX: J30.9 Allergic rhinitis, unspecified (principal); K21.9 Gastro-esophageal reflux disease without esophagitis; Z90.711 Acquired absence of uterus with remaining cervical stump; Z79.899 Other long term (current) drug therapy; Z88.1 Allergy status to other antibiotic agents; Z88.4 Allergy status to anesthetic agent

== ENCOUNTER 2020-12-28 06:39 | Emergency (ER) | payer OTHER ==
[~2020-12-28] VITALS: Ht 167.6 cm; Wt 86.2 kg
--- NOTE | 2020-12-28 07:15 | EKG ---
[address] [address] ELECTROCARDIOGRAM REPORT Name: JAMSHID TOWNSEND Room #: PRE 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 12/28/20 0715 0658 0658 Chandan Carpenter MD, FACC /EPI
[2020-12-28 07:46] LABS: ABSOLUTE NEUTROPHILS 3.3 thou/uL (1.4-8.2); EOSINOPHILS 2.9 % (0.0-3.0); HEMATOCRIT 36.2 % (37.0-47.0); LYMPHOCYTES 28.7 % (24.0-44.0); MCH 28.7 pg (26.0-34.0); MCHC 33.3 g/dL (28.0-37.0); MCV 86.4 fL (80.0-100.0); MONOCYTES 6.7 % (1.0-8.0); PLATELET COUNT 304 thou/uL (150-400); POLYS 60.7 % (36.0-66.0); RBC 4.19 mil/uL (4.20-5.00); RDW 13.9 % (10.5-14.5); WBC 5.4 thou/uL (4.0-11.0)
[2020-12-28 07:56] LABS: ANION GAP 10 mmol/L (7-16); BUN 21 mg/dL (7-18); CALCIUM 8.7 mg/dL (8.5-10.1); CHLORIDE 101 mmol/L (98-107); CO2 26 mmol/L (21-32); CREATININE 0.9 mg/dL (0.6-1.0); GLUCOSE 155 mg/dL (74-106); POTASSIUM 3.4 mmol/L (3.5-5.1); SODIUM 137 mmol/L (136-145)
[2020-12-28 08:07] LABS: ALBUMIN 3.4 g/dL (3.4-5.0); AMYLASE 53 U/L (25-115); LIPASE 57 U/L (73-393); SGOT 20 U/L (15-37); SGPT 39 U/L (14-59); TOTAL BILIRUBIN 0.4 mg/dL (0.2-1.0); TOTAL PROTEIN 6.8 g/dL (6.4-8.2); TROPONIN-I <0.06 ng/mL (<0.06)
[2020-12-28 09:57] VITALS: BP 157/91
== END 2020-12-28 09:58 | disposition home or self-care (01) ==
LOC: ER 06:39
PROVIDERS: Emergency Medicine
DX: R10.32 Left lower quadrant pain (principal); R11.2 Nausea with vomiting, unspecified; K21.9 Gastro-esophageal reflux disease without esophagitis; I34.1 Nonrheumatic mitral (valve) prolapse; Z88.1 Allergy status to other antibiotic agents; Z88.8 Allergy status to other drugs, medicaments and biological substances; Z98.890 Other specified postprocedural states

== ENCOUNTER 2021-04-21 14:40 | Emergency (ER) | payer OTHER ==
[~2021-04-21] VITALS: Ht 167.6 cm; Wt 90.7 kg
[2021-04-21 14:49] VITALS: BP 151/97
== END 2021-04-21 16:33 | disposition home or self-care (01) ==
LOC: ER 14:40
PROVIDERS: Nurse Practitioner Family
DX: U07.1 COVID-19 (principal); K21.9 Gastro-esophageal reflux disease without esophagitis; Z90.710 Acquired absence of both cervix and uterus; Z88.1 Allergy status to other antibiotic agents; Z88.8 Allergy status to other drugs, medicaments and biological substances

== ENCOUNTER 2021-06-14 03:00 | Emergency (ER) | payer OTHER ==
[~2021-06-14] VITALS: Ht 167.6 cm; Wt 90.7 kg
[2021-06-14] MEDS ORDERED: CLARITIN10 MG PO (03:53)
[2021-06-14] MEDS ORDERED: NAPROSYN500 MG PO (03:53)
[2021-06-14] MEDS ORDERED: TESSALON PERLE100 MG PO (03:53)
[2021-06-14 04:28] VITALS: BP 117/68
[2021-06-15] MEDS ORDERED: AFRIN15 M1 NASAL (13:41)
== END 2021-06-14 04:30 | disposition home or self-care (01) ==
LOC: ER 03:00
DX: J06.9 Acute upper respiratory infection, unspecified (principal); R51.9 Headache, unspecified; K21.9 Gastro-esophageal reflux disease without esophagitis; Z98.890 Other specified postprocedural states; Z90.711 Acquired absence of uterus with remaining cervical stump; Z79.899 Other long term (current) drug therapy; Z88.1 Allergy status to other antibiotic agents; Z88.8 Allergy status to other drugs, medicaments and biological substances

== ENCOUNTER 2021-06-15 11:47 | Emergency (ER) | payer OTHER ==
[~2021-06-15] VITALS: Ht 167.6 cm; Wt 90.7 kg
[~2021-06-15 11:47] MED LIST changes: +CLARITIN10 MG PO
[2021-06-15 12:56] VITALS: BP 151/104
[2021-06-15] MEDS ORDERED: AFRIN15 M1 NASAL (13:41)
== END 2021-06-15 13:47 | disposition home or self-care (01) ==
LOC: ER 11:47
DX: J32.9 Chronic sinusitis, unspecified (principal); R05.9 Cough, unspecified; J06.9 Acute upper respiratory infection, unspecified; K21.9 Gastro-esophageal reflux disease without esophagitis; Z90.711 Acquired absence of uterus with remaining cervical stump; Z79.899 Other long term (current) drug therapy; Z79.1 Long term (current) use of non-steroidal anti-inflammatories (NSAID); Z79.891 Long term (current) use of opiate analgesic; Z88.1 Allergy status to other antibiotic agents; Z88.8 Allergy status to other drugs, medicaments and biological substances

== ENCOUNTER 2021-07-22 16:39 | Emergency (ER) | payer OTHER ==
[~2021-07-22] VITALS: Ht 167.6 cm; Wt 90.7 kg
[~2021-07-22 16:39] MED LIST changes: +AFRIN15 M1 NASAL
[2021-07-22] MEDS ORDERED: PREDNISONE 20 M20 MG PO (19:12)
[2021-07-22] MEDS ORDERED: BENADRYL25 MG PO (19:12)
[2021-07-22 19:35] VITALS: BP 137/87
== END 2021-07-22 19:44 | disposition home or self-care (01) ==
LOC: ER 16:39
DX: T78.40XA Allergy, unspecified, initial encounter (principal); K21.9 Gastro-esophageal reflux disease without esophagitis; Z90.710 Acquired absence of both cervix and uterus; Z79.899 Other long term (current) drug therapy; Z88.1 Allergy status to other antibiotic agents; Z88.8 Allergy status to other drugs, medicaments and biological substances; X58.XXXA Exposure to other specified factors, initial encounter